=== PATIENT | female | born 1945 | race Caucasian/White ===

== ENCOUNTER 2025-02-14 18:18 | Inpatient (IN) | payer OTHER, MEDICAID, MEDICARE ==
[~2025-02-14] VITALS: Ht 157.5 cm; Wt 71.8 kg
[~2025-02-14 18:18] MED LIST: ALBU18HF2 IH; CARV12.545 MT; FLUT1DIS3 INH; LOSA100T33 PO; OMEP20TA23 MT; SITA50TA3 MT
[2025-02-14] MEDS: METHYLPREDNISOLONE SOD SUCC 125MG/2ML (ACT-O-VIAL) IV ONE (18:45)
[2025-02-14] MEDS ORDERED: SODIUM CHLORIDE 0.9% (SEPSIS BOLUS) IV ONE (18:45)
[2025-02-14] MEDS: AZITHROMYCIN 500MG/250ML 250 ML IV ONE (18:45)
[2025-02-14] MEDS: FUROSEMIDE 40MG/4ML VIAL IVP NR ×2 (18:54→21:38)
[2025-02-14] MEDS: CEFTRIAXONE 1GM/50ML 50 ML IV ONE (19:28)
[2025-02-14 19:42] LABS: HEMATOCRIT. 30.4 % (36.0-48.0); HEMOGLOBIN. 9.9 g/dL (12.0-16.0); MEAN PLATELET VOLUME 9.3 fl (7.4-10.4); PLATELET 222 x1000/uL (130-400); RED BLOOD CELL COUNT 3.31 mill/uL (4.2-5.4); RED CELL DISTRIBUTION WIDTH 15.2 % (11.6-14.6)
[2025-02-14 19:59] LABS: CREATININE 1.3 mg/dL (0.6-1.0)
[2025-02-14 20:00] LABS: PROTEIN TOTAL 6.8 g/dL (6.0-8.3); UREA NITROGEN BLOOD 29 mg/dL (9-23)
[2025-02-14 20:01] LABS: ASPARTATE AMINOTRANSFERASE 27 IU/L (<34); TROPONIN I HIGH SENSITIVITY < 4 ng/L (3.0-34)
[2025-02-14 20:02] LABS: BILIRUBIN DIRECT 0.1 mg/dL (<=3.0); BILIRUBIN TOTAL 0.5 mg/dL (0.1-1.0)
[2025-02-14 20:25] LABS: EOSINOPHILS % MANUAL 10.0 % (0.0-5.0); LYMPHOCYTES % MANUAL 21.0 % (20.0-60.0); MONOCYTES % MANUAL 16.0 % (2.0-8.0); NEUTROPHILS % MANUAL 53.0 % (45.0-75.0); PLATELET ESTIMATE NORMAL
[2025-02-14 20:59] LABS: INR 1.1
[2025-02-14] MEDS: AZITHROMYCIN 500MG/250ML 250 ML IV SCH (21:38)
[2025-02-14] MEDS: METHYLPREDNISOLONE SOD SUCC 125MG/2ML (ACT-O-VIAL) IV SCH (21:40)
[2025-02-14 22:27] LABS: CLARITY URINE CLEAR (CLEAR); COLOR URINE YELLOW (YELLOW); GLUCOSE URINE NEGATIVE (NEGATIVE); KETONES URINE NEGATIVE (NEGATIVE); LEUKOCYTE ESTERASE URINE NEGATIVE (NEGATIVE); NITRITE URINE NEGATIVE (NEGATIVE); OCCULT BLOOD URINE NEGATIVE (NEGATIVE); PH URINE 6.0 (4.5-8.0); PROTEIN URINE NEGATIVE (NEGATIVE); SPECIFIC GRAVITY URINE 1.011 (1.005-1.030); UROBILINOGEN URINE 0.2 E.U./dL (0.2-1.0)
[2025-02-14 22:49] VITALS: BP 151/78; PULSE 71; RESP 19; TEMP 36.5; O2SAT 100
[2025-02-14 22:55] LABS: INFLUENZA TYPE A Presumptive Negative (Pres. Neg.); INFLUENZA TYPE B Presumptive Negative (Pres. Neg.)
[2025-02-14 23:32] VITALS: BP 145/78; PULSE 64; RESP 17; O2SAT 100
[2025-02-14 23:47] VITALS: BP 151/78; PULSE 71; RESP 19; TEMP 36.5292
[2025-02-15] VITALS (7 sets, daily range): BP systolic 118–151; BP diastolic 57–96; PULSE 60–83; RESP 16–19; TEMP 36.2–36.8; O2SAT 96–100
[2025-02-15] MEDS: IPRATROPIUM BROMIDE (0.02%) 0.5MG/2.5ML NEB HHN SCH
[2025-02-15] MEDS: ALBUTEROL (0.083%) 2.5MG/3ML NEB HHN SCH (00:01)
[2025-02-15] MEDS ORDERED: IPRATROPIUM/ALBUTEROL 0.5-3(2.5)MG/3ML NEB HHN PRN (01:45)
[2025-02-15] MEDS: ACETAMINOPHEN 325MG TABLET PO PRN (01:54)
[2025-02-15] MEDS: METHYLPREDNISOLONE SOD SUCC 40MG/ML (ACT-O-VIAL) IV SCH (01:55)
[2025-02-15] MEDS ORDERED: CLONIDINE 0.1MG TABLET PO PRN (02:30)
[2025-02-15 08:04] LABS: BASOPHILS % 0.2 % (0.0-2.0); EOSINOPHILS % 0.2 % (0.0-5.0); HEMATOCRIT. 32.3 % (36.0-48.0); HEMOGLOBIN. 10.8 g/dL (12.0-16.0); LYMPHOCYTES % 20.9 % (20.0-50.0); MEAN PLATELET VOLUME 9.6 fl (7.4-10.4); MONOCYTES % 2.2 % (2.0-8.0); NEUTROPHILS % 76.5 % (40.0-76.0); PLATELET 233 x1000/uL (130-400); RED BLOOD CELL COUNT 3.58 mill/uL (4.2-5.4); RED CELL DISTRIBUTION WIDTH 14.6 % (11.6-14.6)
[2025-02-15 08:17] LABS: CREATININE 1.3 mg/dL (0.6-1.0)
[2025-02-15 08:18] LABS: PROTEIN TOTAL 6.8 g/dL (6.0-8.3); UREA NITROGEN BLOOD 33 mg/dL (9-23)
[2025-02-15 08:19] LABS: ASPARTATE AMINOTRANSFERASE 27 IU/L (<34)
[2025-02-15 08:20] LABS: BILIRUBIN TOTAL 0.7 mg/dL (0.1-1.0)
[2025-02-15] MEDS: ENOXAPARIN 30MG/0.3ML SYR SUBCUT SCH (09:49)
[2025-02-15] MEDS: IPRATROPIUM/ALBUTEROL 0.5-3(2.5)MG/3ML NEB HHN SCH (20:30)
[2025-02-15] MEDS: BUDESONIDE 0.5MG/2ML NEB HHN SCH (21:36)
[2025-02-16] VITALS (11 sets, daily range): BP systolic 136–152; BP diastolic 62–68; PULSE 64–84; RESP 18–20; TEMP 36.6–37.1; O2SAT 93–99
[2025-02-16] MEDS ORDERED: P20 MT (10:40)
[2025-02-16] MEDS ORDERED: IPRA3AMP9 NEB (10:40)
[2025-02-16] MEDS: VANCOMYCIN 1.5GM PMX (XELLIA) 300 ML IV SCH (12:33)
[2025-02-17] MEDS ORDERED: VANCOMYCIN 750MG PREMIX 150 ML IV SCH (15:00)
== END 2025-02-16 18:35 | disposition home or self-care (01) | DRG 202 ==
LOC: ER 18:18 → MICUSO 20:16 → ENRESERV 22:01 → 7WST 02-15 06:35
PROVIDERS: ADMIT Internal Medicine; ATTEND Internal Medicine
DX: J45.901 Unspecified asthma with (acute) exacerbation (principal); I50.32 Chronic diastolic (congestive) heart failure; I11.0 Hypertensive heart disease with heart failure; D64.9 Anemia, unspecified; E11.9 Type 2 diabetes mellitus without complications; E78.00 Pure hypercholesterolemia, unspecified; Z20.822 Contact with and (suspected) exposure to COVID-19; Z79.84 Long term (current) use of oral hypoglycemic drugs; Z79.899 Other long term (current) drug therapy
CPT/HCPCS: 36415; 71045; 80048; 80053; 80076; 81003; 83605; 83880; 84145; 84484; 85025; 87426; 87804; 93005; 94640; 99291; A4606; A4615; J0456; J0696; J1650; J1938; J2919; J3373; J7030; J7626